=== PATIENT | male | born 1970 | race African-American/Black ===

== ENCOUNTER 2017-07-08 07:59 | Emergency (ER) | payer SELFPAY ==
[~2017-07-08] VITALS: Ht 182.9 cm; Wt 65.0 kg
[2017-07-08] MEDS ORDERED: LIDOCAINE HCL/PF 1% 10 MG/ML 30ML VIAL INFIL ONE (09:15)
[2017-07-08] MEDS ORDERED: CEFTRIAXONE SODIUM 250 MG/VIAL IM ONE (09:15)
[2017-07-08] MEDS ORDERED: AZITHROMYCIN 500 MG TABLET PO ONE (09:15)
[2017-07-08] MEDS ORDERED: LIDOCAINE HCL/PF 1% 10 MG/ML 5ML VIAL IJ ONE (09:30)
[2017-07-08 10:30] LABS: CLARITY URINE CLEAR (CLEAR); COLOR URINE YELLOW (YELLOW); KETONES URINE NEGATIVE (NEGATIVE); LEUKOCYTE ESTERASE URINE NEGATIVE (NEGATIVE); NITRITE URINE NEGATIVE (NEGATIVE); OCCULT BLOOD URINE NEGATIVE (NEGATIVE); PROTEIN URINE NEGATIVE (NEGATIVE); SPECIFIC GRAVITY URINE 1.018 (1.005-1.030)
[2017-07-08] MEDS ORDERED: KETOROLAC 60MG/2ML VIAL IM ONE (11:15)
[2017-07-08] MEDS ORDERED: DIAZEPAM 5 MG TABLET PO ONE (12:00)
[2017-07-08 12:37] VITALS: BP 140/85
== END 2017-07-08 12:52 | disposition home or self-care (01) ==
LOC: ER 07:59
DX: M25.562 Pain in left knee (principal); M54.5 Low back pain; F17.200 Nicotine dependence, unspecified, uncomplicated
CPT/HCPCS: 73560; 81003; 96372; 99285; J0696; J1885; J3490